=== PATIENT | female | born 2000 | race Caucasian/White ===

== ENCOUNTER 2023-01-01 19:45 | Emergency (ER) | payer OTHER, SELFPAY ==
[2023-01-01 20:01] VITALS: BP 146/84; PULSE 94; RESP 16; TEMP 36.9; O2SAT 100; BMI 21.9
--- NOTE | 2023-01-01 20:17 | ED_ITS ---
HPI - General Adult General Chief complaint: Abdominal Pain Stated complaint: ABD PAIN/VOMITING/WHID CLIN SAID GASTROENTERITIS Time Seen by Provider: 01/01/23 20:13 Source: patient Mode of arrival: Ambulatory History of Present Illness HPI narrative: 22-year-old woman with no significant medical history presents after 8 days of persistent vomiting. She was seen on December 26 at [facility] diagnosed with gastroenteritis given Zofran and is finding that Zofran is no longer effective. She is vomiting multiple times a day, still voiding complaining of diffuse abdominal pain that is worse with the vomiting but not so bad it seems to be causing the vomiting. She has not had any fevers. She is not complaining of dizziness, cough, palpitations, lower extremity edema, rashes, vaginal discharge or diarrhea. Related Data Previous Rx's Medication Instructions Recorded omeprazole 20 mg capsule,delayed 20 mg PO DAILY #30 caps 01/01/23 release ondansetron 4 mg disintegrating 4 mg PO Q8H PRN nausea and 01/01/23 tablet vomiting #14 tabs Allergies Allergy/AdvReac Type Severity Reaction Status Date / Time No Known Drug Allergies Allergy Verified 01/01/23 20:04 Review of Systems Review of Systems Narrative: Pertinent positive and negative findings as per HPI Patient History Social History Smoking Status: Current every day smoker Smoking Status: Current every day smoker alcohol intake frequency: a few times a week Substance Use Type: marijuana Exam Initial Vital Signs Initial Vital Signs: Vital Signs Temperature 98.4 F 01/01/23 20:01 Pulse Rate 94 H 01/01/23 20:01 Respiratory Rate 16 01/01/23 20:01 Blood Pressure 146/84 H 01/01/23 20:01 Pulse Oximetry 100 01/01/23 20:01 Oxygen Delivery Method Room Air 01/01/23 20:01 General: Healthy appearing, in no acute distress. Able to give a complete and coherent history. Well-nourished well-developed HEENT: Moist mucous membranes, normal sclera with reactive pupils, Neck: No JVD, supple Respiratory: Lungs are clear to auscultation, no wheezing no rales no rhonchi. Full and symmetrical air movement Cardiac: Regular rate and rhythm no murmurs no bruits Abdomen: Soft, mild diffuse periumbilical tenderness without rebound or guarding, good bowel tones, no flank pain Skin: Warm and dry, no rashes Neurologic: Grossly neurologically intact with no obvious asymmetries or abno rmalities Extremities: No trauma, well perfused Psych: Cooperative, appropriate insight and affect Course Orders Ordered: ED Orders 01/01/23 20:10 Complete Blood Count AUTO DIFF Stat Comprehensive Metabolic Panel Stat Lipase Stat 01/01/23 20:20 Urine Microscopic Stat 01/01/23 21:12 CT abdomen pelvis w con Stat Ondansetron HCl (Ondansetron 4 Mg Odt) 4 mg PO NOW PRN PRN Reason: Nausea And Vomiting Ondansetron HCl (Ondansetron 4 Mg/2 Ml Inj) 4 mg IV NOW PRN PRN Reason: Nausea And Vomiting Discontinued Medications Pantoprazole Sodium (Pantoprazole 40 Mg Vial) 40 mg IV NOW ONE Stop: 01/01/23 21:20 Last Admin: 01/01/23 21:36 Dose: 40 mg Documented By: KYREE Vital Signs Vital signs: Vital Signs - 8 hr 01/01/23 20:01 01/01/23 22:38 Temperature 98.4 F Pulse Rate 94 H 76 Respiratory Rate 16 16 Blood Pressure 146/84 H 124/67 Pulse Oximetry 100 98 Oxygen Delivery Method Room Air Room Air Medical Decision Making Lab Data 01/01/23 20:10 01/01/23 20:10 Labs: Lab Results 01/01/23 01/01/23 01/01/23 Range/Units 20:10 20:10 20:20 WBC 6.9 (4.5-11.0) X10^3/uL RBC 4.44 (4.0-5.2) X10^6/uL Hgb 13.9 (12.0-16.0) g/dL Hct 40.9 (36-46) % MCV 92.3 (80-100) fL MCH 31.4 (26-34) PG MCHC 34.0 (30-36) % RDW 12.3 (11.6-14.8) % Plt Count 221 (150-400) X10^3/uL Neut % (Auto) 53.4 (50-75) % Lymph % (Auto) 38.0 (25-40) % [place] % (Auto) 6.0 (3-14) % Eos % (Auto) 2.2 (2-4) % Baso % (Auto) 0.4 (0-2) % Neut # (Auto) 3700 (7133-9432) /uL Lymph # (Auto) 2600 (6105-2645) /uL [place] # (Auto) 400 (0-900) /uL Eos # (Auto) 200 (0-450) /uL Baso # (Auto) 0 (0-100) /uL Sodium 139 (137-145) mmol/L Potassium 3.8 (3.4-5.1) mmol/L Chloride 103 (98-107) mmol/L Carbon Dioxide 24 (22-32) mmol/L BUN 14 (7-17) mg/dL Creatinine 0.68 (0.52-1.04) mg/dL Estimated GFR > 60 (>60) mL/min BUN/Creatinine Ratio 20.6 (6-22) Glucose 93 (70-100) mg/dL Calcium 9.1 (8.4-10.2) mg/dL Total Bilirubin 0.7 (0.2-1.3) mg/dL AST 18 (14-36) IU/L ALT 20 (<35) IU/L Alkaline Phosphatase 58 (38-126) U/L Total Protein 8.5 H (6.3-8.2) g/dL Albumin 5.0 (3.5-5.0) g/dL Globulin 3.5 (1.7-4.1) g/dL Albumin/Globulin Ratio 1.4 (1.0-2.8) Lipase 111 (23-300) U/L Urine RBC 1-5/hpf (0-5/HPF) Urine WBC 1-5/hpf (0-5/HPF) Ur Squamous Epith Cells 5-10 /hpf H (0-5/HPF) Amorphous Sediment 2+ Urine Bacteria Many (>30) H (None) Ur Culture Indicated? Cult not indicated Point of Care Testing Test Results Negative Urine Dip Bedside Urine Glucose Negative Bedside Urine Bilirubin - Negative Bedside Urine Ketone - Negative Urine Specific [place] 1.015 Bedside Urine Occult Blood +/- Bedside Urine pH 7 Bedside Urine Protein - Negative Bedside Urine Urobilinogen - Negative Bedside Urine Nitrite - Negative Bedside Urine Leukocytes - Negative Esterase Point of care testing: Point of Care Testing Test Results Negative Urine Dip Bedside Urine Glucose Negative Bedside Urine Bilirubin - Negative Bedside Urine Ketone - Negative Urine Specific [place] 1.015 Bedside Urine Occult Blood +/- Bedside Urine pH 7 Bedside Urine Protein - Negative Bedside Urine Urobilinogen - Negative Bedside Urine Nitrite - Negative Bedside Urine Leukocytes - Negative Esterase MDM Narrative Medical decision making narrative: CC: A days of nausea and vomiting without significant weight loss. This is a new problem uncertain diagnosis and uncertain prognosis Complicating co-morbidities: None clearly identified Data collected from: patient, Differential considered: Viral syndrome, anxiety, gastritis, bowel obstruction/tumor mass Exam documented above, pertinent findings include: Fairly benign exam without evidence of dehydration. Mild abdominal tenderness without rebound or guarding Lab Test results independently reviewed as above. Pertinent findings: CBC is unremarkable with no anemia new leukocytosis Chemistries are reassuring Urine has multiple squamous cells and bacteria, this does not appear to be an infection Imaging studies independently reviewed: CT scan of the abdomen is done with shared decision-making. As she is had symptoms now for 8 days I gave her the option of proceeding with scan or continuing to wait. She opted to proceed with scanning. The CT scan is entirely benign with no obvious pathology to explain her symptoms. Treatments: Zofran, fluids, pantoprazole Discussion: Findings are re-evaluated with the patient. She has not had any persistent vomiting since being in the emergency department. Reviewed normal labs normal CT scan. Discussed proton pump inhibitor for a month to see if this has any effect. At this point I do not think that anxiety is directly related however I did ask her to pay attention to that to see if high anxiety days were associated with high nausea and vomiting days. She will schedule an appointment with her follow-up provider to review findings. There is no evidence of infection, acute kidney failure, electrolyte abnormalities, masses tumors, obvious gastric perforation or GI bleeding. Reassurance is given questions are answered and she is safe for discharge home Discharge Plan Departure Patient Disposition: Home Clinical Impression: Nausea & vomiting Qualifiers: Vomiting type: unspecified Qualified Code(s): R11.2 - Nausea with vomiting, unspecified Instructions: DI for Nausea -- Adult Activity Restrictions/Additional Instructions: Thank you for coming in today Your workup was actually quite reassuring. There is no evidence of kidney failure, significant dehydration, infection. Your CT scan was additionally reassuring with no findings to suggest acute pancreatitis, gallbladder disease, significant pathology or obstruction throughout the rest of your belly. I am going to suggest that you try omeprazole, a stomach acid medicine, for 4 weeks. I also want you to schedule an appointment with your primary care doctor. I am less convinced that your nausea is related to her anxiety however, please do pay attention to your days where you seem like your having more anxiety and see if you are having more nausea or vomiting also on those days If you find that you are getting worse, vomiting up any blood, having any black stools, worsening pain that can not be controlled home than please feel free to return to the emergency department Prescriptions: New omeprazole 20 mg capsule,delayed release(DR/EC) 20 mg PO DAILY Qty: 30 1RF ondansetron 4 mg tablet,disintegrating 4 mg PO Q8H PRN (Reason: nausea and vomiting) Qty: 14 0RF Stand Alone Forms: Patient Portal/API, Work Release Note
[2023-01-01 20:33] LABS: Add Manual Diff / Slide Review NO; Basophils Absolute Auto 0 /uL (0-100); Basophils Percent Auto 0.4 % (0-2); Eosinophils Absolute Auto 200 /uL (0-450); Eosinophils Percent Auto 2.2 % (2-4); Hematocrit 40.9 % (36-46); Hemoglobin 13.9 g/dL (12.0-16.0); Lymphocytes Absolute Auto 2600 /uL (1100-4500); Mean Corpuscular Hemoglobin 31.4 PG (26-34); Mean Corpuscular Volume 92.3 fL (80-100); Monocytes Absolute Auto 400 /uL (0-900); Neutrophils Absolute Auto 3700 /uL (1500-7000); Neutrophils Percent Auto 53.4 % (50-75); Platelet Count 221 X10^3/uL (150-400); Red Blood Cell Count 4.44 X10^6/uL (4.0-5.2); Red Cell Distribution Width 12.3 % (11.6-14.8); White Blood Cell Count 6.9 X10^3/uL (4.5-11.0)
[2023-01-01 20:39] LABS: Alanine Aminotransferase 20 IU/L (<35); Albumin Globulin Ratio 1.4 (1.0-2.8); Alkaline Phosphatase 58 U/L (38-126); Aspartate Aminotransferase 18 IU/L (14-36); BUN Creatinine Ratio 20.6 (6-22); Bilirubin Total 0.7 mg/dL (0.2-1.3); Blood Urea Nitrogen 14 mg/dL (7-17); Calcium 9.1 mg/dL (8.4-10.2); Carbon Dioxide 24 mmol/L (22-32); Chloride 103 mmol/L (98-107); Estimated Glomerular Filt Rate > 60 mL/min (>60); Globulin 3.5 g/dL (1.7-4.1); Glucose 93 mg/dL (70-100); HEMOLYSIS < 15 (0-50); Lipase 111 U/L (23-300); Potassium 3.8 mmol/L (3.4-5.1); Sodium 139 mmol/L (137-145); Total Protein 8.5 g/dL (6.3-8.2)
[2023-01-01 20:43] LABS: RBC Urine 1-5/HPF (0-5/HPF)
[2023-01-01 20:44] LABS: Amorphous Sediment Urine 2+; Bacteria Urine Many (>30); Culture Indicated Urine Cult Not Indicated; Squamous Epithelial Cell Urine 5-10 /HPF (0-5/HPF); WBC Urine 1-5/HPF (0-5/HPF)
--- NOTE | 2023-01-01 21:12 | DI.CT.S_ITS ---
PROCEDURE: CT ABDOMEN PELVIS W CON INDICATIONS: diffuse abd pain with persistent nausea/vomiting x 8 days TECHNIQUE: After the administration of IV contrast, axial sections were acquired from the lung bases to the pubic symphysis. Coronal and sagittal reformats were performed. For radiation dose reduction, the following was used: automated exposure control, adjustment of mA and/or kV according to patient size. COMPARISON: None. FINDINGS: Image quality: Excellent. Lung bases: There are small pulmonary nodules in the lung bases, measuring up to 0.3 cm in the right and left lower lobes on series 3, image 7.. Heart: Heart is normal in size. ABDOMEN: Liver: No mass lesion. Gallbladder: Within normal limits without calcified gallstones. Biliary ducts: No biliary ductal dilatation. Pancreas: Unremarkable. Spleen: Normal in size. Adrenal Glands: No adrenal nodules. Kidneys and Ureters: No hydronephrosis. Stomach and Bowel: Stomach, small bowel loops, and colon are normal in caliber and wall thickness. The appendix is normal. There is colonic diverticulosis without acute diverticulitis. Peritoneum: No abnormal intraperitoneal fluid. No free air. Ventral Wall: No hernia. Abdominal Nodes: No retroperitoneal or mesenteric adenopathy by size criteria. Vessels: Aorta and inferior vena cava are normal in size. PELVIS: Pelvic Organs: The uterus and ovaries appear within normal size limits for age. A small amount of endometrial fluid is present. Bladder: Unremarkable. Pelvic Nodes: No enlarged lymph nodes. Miscellaneous: No inguinal hernias are seen. Bones: Visualized osseous structures demonstrate no suspicious focal lesions. IMPRESSION: 1. No definite acute intra-abdominal abnormality. Dictated by: Brodie Quintero M.D. on 01/01/2023 at 22:30 Approved by: Brodie Quintero M.D. on 01/01/2023 at 22:33
[2023-01-01] MEDS: PANTOPRAZOLE 40 MG VIAL IV (21:36)
[2023-01-01 22:38] VITALS: BP 124/67; PULSE 76; RESP 16; O2SAT 98
== END 2023-01-01 23:42 | disposition home or self-care (01) ==
PROVIDERS: Emergency Provider Emergency Medicine
DX: R11.2 Nausea with vomiting, unspecified (principal); R10.2 Pelvic and perineal pain
CPT/HCPCS: 36415; 74177; 80053; 81003; 81015; 81025; 83690; 85025; 96374; 99284; C9113; Q9967

== ENCOUNTER 2023-01-12 18:43 | Emergency (ER) | payer OTHER, SELFPAY ==
[2023-01-12] VITALS (7 sets, daily range): BP systolic 116–128; BP diastolic 69–79; PULSE 74–103; RESP 14–18; TEMP 37.2; O2SAT 98–100; BMI 21.9
--- NOTE | 2023-01-12 19:00 | ED_ITS ---
HPI - Abdominal Pain General Chief Complaint: Abdominal Pain Stated Complaint: vomiting for 2 wks/here t-7/symptoms worsening Time Seen by Provider: 01/12/23 19:00 Source: patient Mode of arrival: Ambulatory History of Present Illness HPI narrative: Patient is a 22-year-old female who presents with vomiting ongoing for about 2 weeks. She was seen evaluated here on January 01. She would a full workup including CT. Diagnosed probable viral gastroenteritis with possible anxiety component. She reports she was given Zofran and omeprazole it still has not helped. She still vomiting unable to keep things down. She has occasional diarrhea she thought that the episode she had this morning was bloody. She was able to keep some mac and cheese down last night. She is still urinating. Today's weight is exactly the same way as it was 2 weeks ago. Related Data Previous Rx's Medication Instructions Recorded omeprazole 20 mg capsule,delayed 20 mg PO DAILY #30 caps 01/01/23 release ondansetron 4 mg disintegrating 4 mg PO Q8H PRN nausea and 01/01/23 tablet vomiting #14 tabs hydrocodone 5 mg-acetaminophen 325 1 tab PO Q6H PRN pain #10 tabs 01/12/23 mg tablet metoclopramide HCl 10 mg tablet 10 mg PO Q6H PRN nausea and 01/12/23 (Reglan) vomiting #20 tabs sucralfate 100 mg/mL oral 10 ml PO QID #1,000 mL 01/12/23 suspension (Carafate) Allergies Allergy/AdvReac Type Severity Reaction Status Date / Time No Known Drug Allergies Allergy Verified 01/01/23 20:04 Review of Systems Review of Systems ROS Unobtainable: All systems reviewed & are unremarkable except as noted in HPI and below Patient History Social History Smoking Status: Current every day smoker Smoking Status: Current every day smoker alcohol intake frequency: a few times a week Substance Use Type: marijuana Exam Initial Vital Signs Initial Vital Signs: Vital Signs Temperature 99.0 F 01/12/23 18:55 Pulse Rate 103 H 01/12/23 18:55 Respiratory Rate 18 01/12/23 18:55 Blood Pressure 124/79 01/12/23 18:55 Pulse Oximetry 99 01/12/23 18:55 Oxygen Delivery Method Room Air 01/12/23 18:55 GENERAL: Alert 22-year-old female and in [no acute] distress. HEENT: Head atraumatic,EOMI, pupils reactive, face symmetric, [moist] mucous membranes CARDIOVASCULAR: Regular rate and rhythm without murmurs, rubs or gallops. RESPIRATORY: Breath sounds equal bilaterally, no wheezes rales or rhonchi. ABDOMEN: Soft, epigastric tenderness no guarding no rebound no Siegel's sign EXTREMITIES: Normal range of motion, no clubbing or edema. Neurovascularly intact NEUROLOGICAL: Alert and oriented x4. SKIN: Warm, dry, no laceration, no petechiae, no rashes or lesions. Course Orders Ordered: ED Orders 01/12/23 19:05 Complete Blood Count AUTO DIFF Stat Comprehensive Metabolic Panel Stat Lactate (Lactic Acid) Stat Lipase Stat Discontinued Medications Hydrocodone Bitart/Acetaminophen (Hydrocodone/Acet 5/325 Prepack) 1 bottle MISC SEEINSTR ONE Stop: 01/12/23 20:58 Last Admin: 01/12/23 21:05 Dose: 1 bottle Documented By: PEEWEE Sodium Chloride (Normal Saline 0.9%) 1,000 mls @ 1,000 mls/hr IV BOLUS ONE Stop: 01/12/23 20:06 Last Infusion: 01/12/23 20:11 Dose: 0 mls/hr Documented By: Admin: 01/12/23 19:15 Dose: 1,000 mls/hr Documented By: JANICE Metoclopramide HCl (Metoclopramide 10 Mg/2 Ml Inj) 10 mg IV NOW ONE Stop: 01/12/23 20:47 Last Admin: 01/12/23 20:53 Dose: 10 mg Documented By: PEEWEE Ondansetron HCl (Ondansetron 4 Mg Odt) 4 mg PO NOW PRN PRN Reason: Nausea And Vomiting Ondansetron HCl (Ondansetron 4 Mg/2 Ml Inj) 4 mg IV NOW PRN PRN Reason: Nausea And Vomiting Pantoprazole Sodium (Pantoprazole 40 Mg Vial) 40 mg IV NOW ONE Stop: 01/12/23 19:12 Last Admin: 01/12/23 19:20 Dose: 40 mg Documented By: JANICE Vital Signs Vital signs: Vital Signs - 8 hr 01/12/23 18:55 01/12/23 19:06 05/21/23 19:30 Temperature 99.0 F Pulse Rate 103 H 90 74 Respiratory Rate 18 16 Blood Pressure 124/79 Pulse Oximetry 99 99 99 Oxygen Delivery Method Room Air Room Air 01/12/23 20:00 01/12/23 20:14 01/12/23 20:14 Temperature Pulse Rate 103 H 102 H Respiratory Rate Blood Pressure 128/77 Pulse Oximetry 100 100 Oxygen Delivery Method 01/12/23 20:30 01/12/23 21:00 01/12/23 21:00 Temperature Pulse Rate 83 89 Respiratory Rate 14 Blood Pressure 116/69 Pulse Oximetry 98 99 Oxygen Delivery Method MDM - Abdominal Pain Lab Data 01/12/23 19:05 01/12/23 19:05 Labs: Lab Results 01/12/23 01/12/23 01/12/23 Range/Units 19:05 19:05 19:05 WBC 5.3 (4.5-11.0) X10^3/uL RBC 4.41 (4.0-5.2) X10^6/uL Hgb 14.1 (12.0-16.0) g/dL Hct 40.3 (36-46) % MCV 91.4 (80-100) fL MCH 32.0 (26-34) PG MCHC 35.0 (30-36) % RDW 12.1 (11.6-14.8) % Plt Count 196 (150-400) X10^3/uL Neut % (Auto) 59.3 (50-75) % Lymph % (Auto) 31.4 (25-40) % [place] % (Auto) 6.1 (3-14) % Eos % (Auto) 2.4 (2-4) % Baso % (Auto) 0.8 (0-2) % Neut # (Auto) 3200 (2042-7811) /uL Lymph # (Auto) 1700 (5742-1122) /uL [place] # (Auto) 300 (0-900) /uL Eos # (Auto) 100 (0-450) /uL Baso # (Auto) 0 (0-100) /uL Sodium 139 (137-145) mmol/L Potassium 3.3 L (3.4-5.1) mmol/L Chloride 102 (98-107) mmol/L Carbon Dioxide 25 (22-32) mmol/L BUN 9 (7-17) mg/dL Creatinine 0.68 (0.52-1.04) mg/dL Estimated GFR > 60 (>60) mL/min BUN/Creatinine Ratio 13.2 (6-22) Glucose 101 H (70-100) mg/dL Lactate 1.0 (0.7-2.1) mmol/L Calcium 9.5 (8.4-10.2) mg/dL Total Bilirubin 0.8 (0.2-1.3) mg/dL AST 19 (14-36) IU/L ALT 21 (<35) IU/L Alkaline Phosphatase 55 (38-126) U/L Total Protein 8.0 (6.3-8.2) g/dL Albumin 4.7 (3.5-5.0) g/dL Globulin 3.3 (1.7-4.1) g/dL Albumin/Globulin Ratio 1.4 (1.0-2.8) Lipase 55 (23-300) U/L Point of care testing: Point of Care Testing Test Results Negative Urine Dip Bedside Urine Glucose Negative Bedside Urine Bilirubin - Negative Bedside Urine Ketone + 15 Urine Specific [place] 1.015 Bedside Urine Occult Blood - Negative Bedside Urine pH 6.0 Bedside Urine Protein - Negative Bedside Urine Urobilinogen 0.2 mg/dl Bedside Urine Nitrite - Negative Bedside Urine Leukocytes - Negative Esterase MDM Narrative Medical decision making narrative: Patient 22-year-old female who presents with epigastric pain and nausea ongoing for 2-3 weeks. No fever she has not had significant weight loss. Potassium today is slightly low at 3.3 but no significant leukocytosis or [place]. She is tolerating fluids. [place] is [place] really been unable to do so. At this time blood work his relatively reassuring exam is fairly benign I see no need for repeat imaging. I suspect a gastric or peptic ulcer possible gastritis. She is already taken omeprazole and Zofran is not working. Will add Reglan and Carafate. Discharge Plan Departure Patient Disposition: Home Clinical Impression: Gastric ulcer Instructions: DI for Gastric Ulcer Activity Restrictions/Additional Instructions: *You have been diagnosed with gastric ulcer *What to do: At this time increase food and fluid as tolerated. I do strongly recommend that you get an EGD and colonoscopy. [place] for [place]. *Continue to take medications as directed: Avoid NSAIDs such as ibuprofen/Aleve/Advil/Motrin etc Continue omeprazole as previously prescribed Reglan 10 mg every 6 hours if needed for nausea vomiting Carafate 1 g q.i.d. [place] 1 tablet every 6 hours if needed for severe pain *Follow up with your primary care provider in 2-3 days or call [phone] *Return to ER if you should have persistent vomiting increasing pain dizziness lightheadedness passing out [or] any new, worsening or concerning symptoms CONTROLLED SUBSTANCE DISCHARGE (Narcotoic/benzodiazepine/Flexeril/Phenergan) 1. You have been prescribed narcotic medications, it does have acetaminophen/Tylenol/paracetamol in it, DO NOT TAKE MORE THAN 4,00mg in 24 hours of Tylenol. TRAMADOL DOES NOT CONTAIN TYLENOL 2. Please understand that we cannot provide further refills of narcotics, benzodiazepines or controlled substances through the ED and her pain management will need to be through your provider. 3. While on these medications you cannot drive or operate heavy machinery. 4. You cannot sign legal documents or perform any duties such as this. 5. As long as you're taking opiate pain medications he should also be taking a stool softener such as Colace, Dulcolax, MiraLAX or prune juice, to help avoid constipation. Prescriptions: New hydrocodone-acetaminophen 5-325 mg tablet 1 tab PO Q6H PRN (Reason: pain) Qty: 10 0RF metoclopramide HCl [Reglan] 10 mg tablet 10 mg PO Q6H PRN (Reason: nausea and vomiting) Qty: 20 0RF sucralfate [Carafate] 100 mg/mL suspension 10 ml PO QID Qty: 1000 0RF Rx Instructions: swish in mouth and swallow; use after food/drink No Action omeprazole 20 mg capsule,delayed release(DR/EC) 20 mg PO DAILY Qty: 30 1RF ondansetron 4 mg tablet,disintegrating 4 mg PO Q8H PRN (Reason: nausea and vomiting) Qty: 14 0RF Stand Alone Forms: Patient Portal/API, Work Release Note
[2023-01-12 19:13] LABS: Add Manual Diff / Slide Review NO; Basophils Absolute Auto 0 /uL (0-100); Basophils Percent Auto 0.8 % (0-2); Eosinophils Absolute Auto 100 /uL (0-450); Eosinophils Percent Auto 2.4 % (2-4); Hematocrit 40.3 % (36-46); Hemoglobin 14.1 g/dL (12.0-16.0); Lymphocytes Absolute Auto 1700 /uL (1100-4500); Lymphocytes Percent Auto 31.4 % (25-40); Mean Corpuscular Volume 91.4 fL (80-100); Monocytes Absolute Auto 300 /uL (0-900); Monocytes Percent Auto 6.1 % (3-14); Neutrophils Absolute Auto 3200 /uL (1500-7000); Neutrophils Percent Auto 59.3 % (50-75); Platelet Count 196 X10^3/uL (150-400); Red Blood Cell Count 4.41 X10^6/uL (4.0-5.2); Red Cell Distribution Width 12.1 % (11.6-14.8); White Blood Cell Count 5.3 X10^3/uL (4.5-11.0)
[2023-01-12] MEDS: SODIUM CHLORIDE 0.9% 1,000 ML 1000 ML IV (19:15)
[2023-01-12] MEDS: PANTOPRAZOLE 40 MG VIAL IV (19:20)
[2023-01-12 19:23] LABS: Alanine Aminotransferase 21 IU/L (<35); Albumin 4.7 g/dL (3.5-5.0); Albumin Globulin Ratio 1.4 (1.0-2.8); Alkaline Phosphatase 55 U/L (38-126); Aspartate Aminotransferase 19 IU/L (14-36); BUN Creatinine Ratio 13.2 (6-22); Bilirubin Total 0.8 mg/dL (0.2-1.3); Blood Urea Nitrogen 9 mg/dL (7-17); Calcium 9.5 mg/dL (8.4-10.2); Carbon Dioxide 25 mmol/L (22-32); Chloride 102 mmol/L (98-107); Estimated Glomerular Filt Rate > 60 mL/min (>60); Globulin 3.3 g/dL (1.7-4.1); Glucose 101 mg/dL (70-100); HEMOLYSIS < 15 (0-50); Lipase 55 U/L (23-300); Potassium 3.3 mmol/L (3.4-5.1); Sodium 139 mmol/L (137-145)
[2023-01-12] MEDS: METOCLOPRAMIDE 10 MG/2 ML INJ IV (20:53)
[2023-01-12] MEDS: HYDROCODONE/ACET 5/325 PREPACK 1 BOTTLE MISC (21:05)
== END 2023-01-12 21:17 | disposition home or self-care (01) ==
PROVIDERS: Emergency Provider Emergency Medicine
DX: K25.9 Gastric ulcer, unspecified as acute or chronic, without hemorrhage or perforation (principal)
CPT/HCPCS: 36415; 80053; 81003; 81025; 83605; 83690; 85025; 96361; 96374; 96375; 99284; C9113; J2765

== ENCOUNTER 2023-05-28 13:29 | Emergency (ER) | payer OTHER, SELFPAY ==
[2023-05-28 13:41] VITALS: BP 136/88; PULSE 90; RESP 16; TEMP 37.1; O2SAT 99; BMI 21.0
--- NOTE | 2023-05-28 14:12 | PC.NURSE ---
Noted to have unequal pupils with R > L. Both reactive. Reports that she noticed the unequal size 3 hrs ago and was wearing a scopolamine patch 2 day ago.
--- NOTE | 2023-05-28 15:20 | PC.NURSE ---
On reassessment, pts pupils are equal size and reactive. [place] drop instilled in eye with AARON Puentes for Pharmacologic Anisocoria testing. Pt's R pupil with minimal to no constriction after testing indicating potential pharmacologic anisocoria from scopolamine use . Pt tolerated procedure well.
[2023-05-28 15:29] VITALS: BP 111/77; PULSE 92; RESP 16; O2SAT 99
[2023-05-28] MEDS: PILOCARPINE 2% OPHTH DROPS 15 ML 1 DROPS EYE-BOTH (15:29)
--- NOTE | 2023-05-28 15:35 | ED.EYEPROB ---
HPI - Eye Problem General Chief complaint: Eye Problems Stated complaint: Pupils do not match in size... Time Seen by Provider: 05/28/23 14:08 Source: patient Mode of arrival: Ambulatory History of Present Illness HPI Narrative: Patient is a 22-year-old female who presents with concern for her right pupil being larger than her left. She noticed her pupil this morning and it has been present for about 3 hours. She has a very mild headache, but this is not uncommon for her. She has a history of daily vomiting, for which she is being worked up by GI. She reports using a scopolamine patch for her vomiting, which she applied either Friday or Friday night and took off on Friday night. It has been approximately 36 hours since she removed the patch. She denies any double vision, vertigo, severe headache, loss of visual field or floaters in her vision. Related Data Previous Rx's Medication Instructions Recorded omeprazole 20 mg capsule,delayed 20 mg PO DAILY #30 caps 01/01/23 release ondansetron 4 mg disintegrating 4 mg PO Q8H PRN nausea and 01/01/23 tablet vomiting #14 tabs hydrocodone 5 mg-acetaminophen 325 1 tab PO Q6H PRN pain #10 tabs 01/12/23 mg tablet metoclopramide HCl 10 mg tablet 10 mg PO Q6H PRN nausea and 01/12/23 (Reglan) vomiting #20 tabs sucralfate 100 mg/mL oral 10 ml PO QID #1,000 mL 01/12/23 suspension (Carafate) Allergies Allergy/AdvReac Type Severity Reaction Status Date / Time No Known Drug Allergies Allergy Verified 01/01/23 20:04 Review of Systems Review of Systems ROS Unobtainable: All systems reviewed & are unremarkable except as noted in HPI and below Patient History Social History Smoking Status: Current every day smoker Smoking Status: Current every day smoker tobacco type: vaping alcohol intake frequency: a few times a month Substance Use Type: does not use Exam Narrative Exam Narrative: GENERAL: 22 year old patient appears stated age. Well-developed patient, in no distress. NEURO: Alert and oriented x3, mood/affect normal, normal speech, normal cognition. CN's (II-XII) grossly intact. No gross motor deficit, 5/5 strength throughout, no gross sensory loss. HEAD: Atraumatic. Normocephalic. EYES: Pupils equal round and reactive. Extraocular motions intact. No pain with EOM. No scleral icterus. No injection or drainage. No ptosis. ENT: Nose without bleeding or purulent drainage. Airway patent. NECK: Trachea midline. Non tender RESPIRATORY: No distress SKIN: No rash or erythema of visible areas Initial Vital Signs Initial Vital Signs: Vital Signs Temperature 98.7 F 05/28/23 13:41 Pulse Rate 90 05/28/23 13:41 Respiratory Rate 16 05/28/23 13:41 Blood Pressure 136/88 05/28/23 13:41 Pulse Oximetry 99 05/28/23 13:41 Oxygen Delivery Method Room Air 05/28/23 13:41 Course Orders Ordered: Discontinued Medications Pilocarpine HCl (Pilocarpine 1% Ophth Drops 15 Ml) 1 drops EYE-BOTH NOW ONE Stop: 05/28/23 14:19 Last Admin: 05/28/23 15:29 Dose: Not Given Documented By: CTS Pilocarpine HCl (Pilocarpine 2% Ophth Drops 15 Ml) 1 drops EYE-BOTH NOW ONE Stop: 05/28/23 14:46 Last Admin: 05/28/23 15:29 Dose: Not Given Documented By: CTS Pilocarpine HCl (Pilocarpine 2% Ophth Drops 15 Ml) 1 drops EYE-BOTH NOW ONE Stop: 05/28/23 15:16 Last Admin: 05/28/23 15:29 Dose: 1 drops Documented By: CTS Vital Signs Vital signs: Vital Signs - 8 hr 05/28/23 13:41 05/28/23 15:29 Temperature 98.7 F Pulse Rate 90 92 H Respiratory Rate 16 16 Blood Pressure 136/88 111/77 Pulse Oximetry 99 99 Oxygen Delivery Method Room Air Room Air MDM - Eye Problem MDM Narrative Medical decision making narrative: Multiple etiologies for patient's symptoms considered including, but not limited to: Physiologic anisocoria, Adie's tonic pupil, 3rd nerve palsy, pharmacologic anisocoria, intracranial abnormality. Patient without any red flags to indicate need for advanced imaging of her brain at this time. Per up-to-date algorithm, testing with pilocarpine eye drops demonstrates minimal constriction of the dilated pupil, indicating a pharmacologic anisocoria secondary to scopolamine patch use on the right side 36 hours ago. Discussed with the patient that this is a known side effect of the scopolamine patch, if it is giving her relief from her nausea, I would continue using it in coordination with her GI provider. Strict return precautions advised, including if she develops double vision, severe headache, vertigo. Patient's symptoms improved over duration of stay with above-stated therapies. Findings and discharge diagnosis discussed with patient/family followed by verbalization of understanding Return precautions discussed with patient/family whom verbalize understanding of diagnosis and plan Discharge Plan Departure Patient Disposition: Home Clinical Impression: Anisocoria Instructions: General Wellness (Alternative Therapy) Activity Restrictions/Additional Instructions: *You have been diagnosed with anisocoria. This is likely a medication side effect of the scopolamine patch that you had behind your right ear. This change in the size of your pupil may last up to 2 weeks, and this can be expected with the medication. You can continue using the medication as prescribed. If you develop any severe headache, double vision, weakness, or other symptoms, please return for reassessment. *What to do: *Please continue to take your regular medications as directed. [ ] New medication prescriptions sent to your pharmacy: [ ] [ ] New medication written as a paper prescription [x] No new medications given *Please follow up with your primary care provider in 2-3 days, call for an appointment. Let them know you were seen in the Emergency Department and that we ask that you be seen in follow up. We will electronically transmit a record of today's note if your PCP is in our system *If you do not have a primary care provider please contact the [facility] Resource line at [phone]. They will ask some questions about your medical history and help get you set up with a doctor in the community. *Return to Emergency Department if you should have any new, worsening or concerning symptoms, such as [fever greater than 101 F, shaking chills, worsening pain, persistent vomiting or other concerning symptoms]. Prescriptions: No Action omeprazole 20 mg capsule,delayed release(DR/EC) 20 mg PO DAILY Qty: 30 1RF ondansetron 4 mg tablet,disintegrating 4 mg PO Q8H PRN (Reason: nausea and vomiting) Qty: 14 0RF hydrocodone-acetaminophen 5-325 mg tablet 1 tab PO Q6H PRN (Reason: pain) Qty: 10 0RF metoclopramide HCl [Reglan] 10 mg tablet 10 mg PO Q6H PRN (Reason: nausea and vomiting) Qty: 20 0RF sucralfate [Carafate] 100 mg/mL suspension 10 ml PO QID Qty: 1000 0RF Rx Instructions: swish in mouth and swallow; use after food/drink Stand Alone Forms: Patient Portal/API
== END 2023-05-28 15:37 | disposition home or self-care (01) ==
PROVIDERS: Emergency Provider Physician Assistant
DX: H57.02 Anisocoria (principal)
CPT/HCPCS: 99282

== ENCOUNTER → 2023-06-18 08:14 | Outpatient (CLI) | payer OTHER, SELFPAY ==
--- NOTE | 2023-06-18 | DI.NM.S_ITS ---
PROCEDURE: NM GASTRIC EMPTYING STUDY RADIOPHARMACEUTICAL: 1 mCi Tc-99m sulfur colloid in an egg sandwich. INDICATIONS: NAUSEA TECHNIQUE: A Tc-99m labeled sulfur colloid labeled egg sandwich or oatmeal was served to the patient. Anterior and posterior planar images of the abdomen were obtained at 0 minutes and 30 minutes, then at hourly intervals up to 4 hours. The patient was upright and ambulating during the interval. COMPARISON: CT, CT ABDOMEN PELVIS W CON, 01/01/2023, 21:24. FINDINGS: The stomach has normal size, morphology, and position. There is normal emptying of solid gastric contents from the stomach by visual inspection. No gastroesophageal reflux is visualized. The percentage of tracer retained at specific time points are as follows: Time point Percent gastric retention Normal range 30 minutes 91% 70% or more 1 hour 70% 30% to 90% 2 hours 30% 60% or less 3 hours 12% 30% or less 4 hours 4% 10% or less IMPRESSION: Normal gastric emptying study. Dictated by: Geovanni Rivera M.D. on 06/18/2023 at 13:01 Approved by: Geovanni Rivera M.D. on 06/18/2023 at 13:08
== END ==
PROVIDERS: Referring Provider Physician Assistant; Visit Provider Physician Assistant
DX: R11.0 Nausea (principal)
CPT/HCPCS: 78264; A9541

== ENCOUNTER 2023-10-27 10:19 | Emergency (ER) | payer OTHER, SELFPAY ==
[2023-10-27] VITALS (8 sets, daily range): BP systolic 107–132; BP diastolic 77–94; PULSE 85–101; RESP 16–18; TEMP 36.9; O2SAT 97–100; BMI 22.1
--- NOTE | 2023-10-27 11:19 | ED_ITS ---
HPI - Nausea/Vomiting/Diarrhea General Chief complaint: Nausea/Vomiting/Diarrhea Stated complaint: vommiting t-7 Time Seen by Provider: 10/27/23 10:31 Source: patient Mode of arrival: Ambulatory History of Present Illness HPI Narrative: 23-year-old female presents with nausea or vomiting. The patient states she has a long history of nausea and vomiting with extensive workup by GI, with previous CT scans, endoscopy and colonoscopy, barium study, without clear explanation. She smokes marijuana but tried 6 months of not using it which did not work. She intermittently has nausea and vomiting and has been struggling with this now for the last week, with poor p.o. intake. She feels dehydrated. She denies fevers, chills, sore throat, rhinorrhea, myalgias, cough, chest or back or abdominal or flank pain, head or neck pain, trauma, visual or hearing changes, focal numbness or weakness, blood in vomit, red or black in stool, dysuria, hematuria, urinary frequency, concern for , or any other new concerns. She tried Zofran but this did not help enough. She is not sure what other antiemetics were best though she states she has tried multiple in the past. No other new concerns. She denies prior abdominal surgeries. Per chart review, she has history of GI evaluations for frequent vomiting, with scopolamine patch tried in the past. Related Data Previous Rx's Medication Instructions Recorded omeprazole 20 mg capsule,delayed 20 mg PO DAILY #30 caps 01/01/23 release ondansetron 4 mg disintegrating 4 mg PO Q8H PRN nausea and 01/01/23 tablet vomiting #14 tabs hydrocodone 5 mg-acetaminophen 325 1 tab PO Q6H PRN pain #10 tabs 01/12/23 mg tablet metoclopramide HCl 10 mg tablet 10 mg PO Q6H PRN nausea and 01/12/23 (Reglan) vomiting #20 tabs sucralfate 100 mg/mL oral 10 ml PO QID #1,000 mL 01/12/23 suspension (Carafate) metoclopramide HCl 10 mg tablet 10 mg PO Q6H PRN nausea and 10/27/23 (Reglan) vomiting #10 tabs Allergies Allergy/AdvReac Type Severity Reaction Status Date / Time Fish Containing Products Allergy Verified 10/27/23 10:43 Review of Systems Review of Systems Narrative: Constitutional: no fever, no chills Eyes: no visual disturbance, no discharge Ears, Nose, Mouth, Throat: no rhinorrhea, no sore throat Cardiovascular: no chest pain, no palpitations Respiratory: no cough, no shortness of breath Gastrointestinal: no abdominal pain, +vomiting, no diarrhea Genitourinary: no dysuria, no hematuria Musculoskeletal: no back pain, no neck stiffness Skin: no rash, no wound Neurological: no focal weakness, no focal numbness Patient History Social History Smoking Status: Current every day smoker Smoking Status: Current every day smoker tobacco type: vaping alcohol intake frequency: a few times a month Substance Use Type: does not use Exam Narrative Exam Narrative: Const: no acute distress, non toxic appearing; calm, conversant, pleasant Eyes: PERRLA, EOMI ENT: mucous membranes moist Neck: supple, non-tender Resp: no respiratory distress, clear to auscultation bilaterally Card: regular tachycardia currently to low 100s, no murmurs Abd: non tender diffusely on multiple assessments, negative Siegel's sign, no rigidity or rebound or guarding Back: no T or L spine tenderness, no CVA tenderness bilaterally Extrem: no deformities, no swelling bilateral lower extremities, 2+ distal pulses all extremities Neuro: ANOx4, carbon cleaner grossly intact, grossly intact sensation and strength all extremities Skin: no rash, warm and dry, less than 2nd capillary refill distally Initial Vital Signs Initial Vital Signs: Vital Signs Temperature 98.4 F 10/27/23 10:35 Pulse Rate 89 10/27/23 10:35 Respiratory Rate 16 10/27/23 10:35 Blood Pressure 128/94 H 10/27/23 10:35 Pulse Oximetry 99 10/27/23 10:35 Oxygen Delivery Method Room Air 10/27/23 10:35 Course Course Course Narrative: This presentation is most suggestive of chronic nausea and vomiting of unexplained etiology despite extensive outpatient workup, and a currently well- appearing, well-perfused patient who is comfortable with benign abdomen, though tachycardic in the setting of poor p.o. intake and ongoing nausea. In this setting, I am considered broad differential including but not limited to electrolyte derangements, HARRISON, intravascular volume depletion, gastritis, peptic ulcer disease, pancreatitis, , UTI, pyelonephritis, gastroparesis, cannabinoid hyperemesis syndrome, viral syndrome, among others. It seems unlikely we will identify a clear etiology for her chronic vomiting today however given extensive prior workup. I am still obtaining CBC, CMP, lipase, urinalysis, hCG, EKG, giving fluids and Reglan to assist with symptoms and will closely reassess. Patient is stable and understands and agrees with plan. Labs: HCG negative. CBC with mild leukopenia suitable for follow up with no clear evidence of infection here, no anemia or thrombocytopenia. Chemistry with creatinine within normal limits, no LFT elevation, no immediately concerning electrolyte derangements, overall reassuring. Lipase reassuring. UA with trace ketones, no clear evidence of infection. EKG NSR without acute ischemia or immediately concerning interval prolongation on my review. This remains most consistent with chronic nausea and vomiting, with symptoms improved here. Patient feeling improved and tolerating p.o.. Tachycardia fully resolved. She is comfortable, stating she is asymptomatic. She has benign abdomen. She appears stable for discharge. I am prescribing Reglan, which seemed to help her here. She understands importance of follow up and return precautions. Repeat exam and vital signs reassuring. Questions answered. Plan reviewed. Patient discharged in stable condition. Orders Ordered: ED Orders 10/27/23 11:44 EKG-12 Lead Stat 10/27/23 11:55 Beta HCG, Quant [HCG Quantitative /Beta subunit] Stat CBC Auto Diff [Complete Blood Count AUTO DIFF] Stat CMP [Comprehensive Metabolic Panel] Stat Lipase Stat 10/27/23 12:51 Urinalysis and Microscopic Stat Discontinued Medications Sodium Chloride (Normal Saline 0.9%) 1,000 mls @ 1,000 mls/hr IV BOLUS ONE Stop: 10/27/23 12:39 Last Infusion: 10/27/23 12:50 Dose: Infused Documented By: Admin: 10/27/23 12:02 Dose: 1,000 mls/hr Documented By: FREEDOM Metoclopramide HCl (Metoclopramide 10 Mg/2 Ml Inj) 10 mg IV NOW ONE Stop: 10/27/23 11:41 Last Admin: 10/27/23 12:02 Dose: 10 mg Documented By: FREEDOM Vital Signs Vital signs: Vital Signs - 8 hr 10/27/23 10:35 10/27/23 10:39 10/27/23 10:39 Temperature 98.4 F Pulse Rate 89 101 H Respiratory Rate 16 Blood Pressure 128/94 H 128/94 H Pulse Oximetry 99 98 Oxygen Delivery Method Room Air 10/27/23 11:00 10/27/23 11:00 10/27/23 11:30 Temperature Pulse Rate 96 H 97 H Respiratory Rate Blood Pressure 132/83 Pulse Oximetry 98 99 Oxygen Delivery Method Room Air Room Air 10/27/23 11:30 10/27/23 12:00 10/27/23 12:01 Temperature Pulse Rate 85 Respiratory Rate Blood Pressure 128/87 122/82 Pulse Oximetry 100 Oxygen Delivery Method 10/27/23 12:01 10/27/23 12:30 10/27/23 12:30 Temperature Pulse Rate 90 93 H Respiratory Rate Blood Pressure 116/77 Pulse Oximetry 100 97 Oxygen Delivery Method Room Air Room Air 10/27/23 13:27 Temperature Pulse Rate 93 H Respiratory Rate 18 Blood Pressure 107/82 Pulse Oximetry 98 Oxygen Delivery Method Room Air MDM - Nausea/Vomiting/Diarrhea Lab Data 10/27/23 11:55 10/27/23 11:55 Labs: Lab Results 10/27/23 10/27/23 Range/Units 11:55 12:51 WBC 3.9 L (4.5-11.0) X10^3/uL RBC 4.60 (4.0-5.2) X10^6/uL Hgb 14.3 (12.0-16.0) g/dL Hct 41.2 (36-46) % MCV 89.7 (80-100) fL MCH 31.1 (26-34) PG MCHC 34.7 (30-36) % RDW 12.5 (11.6-14.8) % Plt Count 197 (150-400) X10^3/uL Neut % (Auto) 42.6 L (50-75) % Lymph % (Auto) 42.4 H (25-40) % [place] % (Auto) 5.5 (3-14) % Eos % (Auto) 8.9 H (2-4) % Baso % (Auto) 0.6 (0-2) % Neut # (Auto) 1700 (1024-7197) /uL Lymph # (Auto) 1700 (1362-4982) /uL [place] # (Auto) 200 (0-900) /uL Eos # (Auto) 300 (0-450) /uL Baso # (Auto) 0 (0-100) /uL Sodium 141 (137-145) mmol/L Potassium 3.5 (3.4-5.1) mmol/L Chloride 108 H (98-107) mmol/L Carbon Dioxide 24 (22-32) mmol/L BUN 6 L (7-17) mg/dL Creatinine 0.62 (0.52-1.04) mg/dL Estimated GFR > 60 (>60) mL/min BUN/Creatinine Ratio 9.7 (6-22) Glucose 94 (70-100) mg/dL Calcium 9.5 (8.4-10.2) mg/dL Total Bilirubin 1.0 (0.2-1.3) mg/dL AST 21 (14-36) IU/L ALT 23 (<35) IU/L Alkaline Phosphatase 54 (38-126) U/L Total Protein 8.3 H (6.3-8.2) g/dL Albumin 4.8 (3.5-5.0) g/dL Globulin 3.5 (1.7-4.1) g/dL Albumin/Globulin Ratio 1.4 (1.0-2.8) Lipase 67 (23-300) U/L HCG, Quant < 2.4 mIU/mL Urine Color Yellow Urine Appearance Clear Urine pH 6.5 (4.5-8.0) Ur Specific [place] 1.010 (1.000-1.035) Urine Protein Negative (Negative) Urine Glucose (UA) Negative (Negative) g/dL Urine Ketones Trace H (NEGATIVE) Urine Occult Blood Negative (Negative) Urine Nitrate Negative (Negative) Urine Bilirubin Negative (NEGATIVE) Urine Urobilinogen 0.2 (0.2) E.U./dL Ur Leukocyte Esterase Negative (NEGATIVE) Urine RBC None seen (0-5/HPF) Urine WBC None seen (0-5/HPF) Ur Squamous Epith Cells None seen (0-5/HPF) Urine Bacteria None seen (None) Ur Culture Indicated? Cult not indicated Vol Urine Centrifuged 10ml (spun) Point of Care Testing Test Results Negative Urine Dip Bedside Urine Glucose Negative Bedside Urine Bilirubin - Negative Bedside Urine Ketone - Negative Urine Specific Ophel[place] 1.015 Bedside Urine Occult Blood - Negative Bedside Urine pH 7.5 Bedside Urine Protein - Negative Bedside Urine Urobilinogen - Negative Bedside Urine Nitrite - Negative Bedside Urine Leukocytes - Negative Esterase Discharge Plan Departure Patient Disposition: Home Clinical Impression: Acute vomiting Instructions: DI for Vomiting -- Adult Activity Restrictions/Additional Instructions: It was a pleasure taking care of you today. It is important to fully read and understand the below. Please ask us if you have any questions. Your testing here is overall reassuring. Your white count is mildly low. Please see your primary doctor within 3-5 days to be reassessed and discuss further care, bringing this sheet. No tests or assessments are perfect, and your condition could supervisor policy change clerks time. If your symptoms change or worsen, it is very important you immediately seek medical care. If you have any new or worsening pain, lightheadedness or passing out, shortness of breath, fever, persistent vomiting, confusion, numbness, weakness, or anything else that concerns you, please immediately seek medical care. If you have been prescribed any medications: please read the drug package inserts on how to properly use the medication and any potential side effects. If you had labs (blood tests) or imaging (CT scan or x-rays) done during your visit: please follow up on the results of these with your primary care doctor, as discussed. In addition, please know the results we received today may be preliminary. Our usual practice is to follow up on tests within a few days of a patient's discharge from the Emergency Department and notify you of any changes. These may lead to changes to your treatment plan. However, the best way to obtain and interpret these test results is through your Primary Care Provider. If you need to update your contact information, please stop by the front office medical assistant and alert the Registration personnel before you leave the Emergency Department. Thank you for the opportunity to participate in your healthcare. We are always here and happy to see you in the future. Prescriptions: New metoclopramide HCl [Reglan] 10 mg tablet 10 mg PO Q6H PRN (Reason: nausea and vomiting) Qty: 10 0RF No Action omeprazole 20 mg capsule,delayed release(DR/EC) 20 mg PO DAILY Qty: 30 1RF ondansetron 4 mg tablet,disintegrating 4 mg PO Q8H PRN (Reason: nausea and vomiting) Qty: 14 0RF hydrocodone-acetaminophen 5-325 mg tablet 1 tab PO Q6H PRN (Reason: pain) Qty: 10 0RF metoclopramide HCl [Reglan] 10 mg tablet 10 mg PO Q6H PRN (Reason: nausea and vomiting) Qty: 20 0RF sucralfate [Carafate] 100 mg/mL suspension 10 ml PO QID Qty: 1000 0RF Rx Instructions: swish in mouth and swallow; use after food/drink Stand Alone Forms: Patient Portal/API, Work Release Note
[2023-10-27] MEDS: METOCLOPRAMIDE 10 MG/2 ML INJ IV (12:02)
[2023-10-27] MEDS: SODIUM CHLORIDE 0.9% 1,000 ML 1000 ML IV (12:02)
[2023-10-27 12:03] LABS: Add Manual Diff / Slide Review NO; Basophils Absolute Auto 0 /uL (0-100); Basophils Percent Auto 0.6 % (0-2); Eosinophils Absolute Auto 300 /uL (0-450); Eosinophils Percent Auto 8.9 % (2-4); Hematocrit 41.2 % (36-46); Hemoglobin 14.3 g/dL (12.0-16.0); Lymphocytes Absolute Auto 1700 /uL (1100-4500); Lymphocytes Percent Auto 42.4 % (25-40); Mean Corpuscular HGB Conc 34.7 % (30-36); Mean Corpuscular Hemoglobin 31.1 PG (26-34); Mean Corpuscular Volume 89.7 fL (80-100); Monocytes Absolute Auto 200 /uL (0-900); Monocytes Percent Auto 5.5 % (3-14); Neutrophils Absolute Auto 1700 /uL (1500-7000); Neutrophils Percent Auto 42.6 % (50-75); Platelet Count 197 X10^3/uL (150-400); Red Cell Distribution Width 12.5 % (11.6-14.8); White Blood Cell Count 3.9 X10^3/uL (4.5-11.0)
[2023-10-27 12:15] LABS: Alanine Aminotransferase 23 IU/L (<35); Albumin 4.8 g/dL (3.5-5.0); Albumin Globulin Ratio 1.4 (1.0-2.8); Alkaline Phosphatase 54 U/L (38-126); Aspartate Aminotransferase 21 IU/L (14-36); BUN Creatinine Ratio 9.7 (6-22); Blood Urea Nitrogen 6 mg/dL (7-17); Calcium 9.5 mg/dL (8.4-10.2); Carbon Dioxide 24 mmol/L (22-32); Chloride 108 mmol/L (98-107); Estimated Glomerular Filt Rate > 60 mL/min (>60); Globulin 3.5 g/dL (1.7-4.1); Glucose 94 mg/dL (70-100); HEMOLYSIS < 15 (0-50); Lipase 67 U/L (23-300); Potassium 3.5 mmol/L (3.4-5.1); Sodium 141 mmol/L (137-145); Total Protein 8.3 g/dL (6.3-8.2)
[2023-10-27 12:31] LABS: HCG Quantitative /Beta subunit < 2.4 mIU/mL
[2023-10-27 13:04] LABS: Appearance Urine UA CLEAR; Bilirubin Urine UA NEGATIVE (NEGATIVE); Color Urine UA YELLOW; Glucose Urine UA NEGATIVE (Negative); Ketones Urine UA TRACE (NEGATIVE); Leukocyte Esterase Urine UA NEGATIVE (NEGATIVE); Nitrite Urine UA NEGATIVE (Negative); Occult Blood Urine UA NEGATIVE (Negative); Protein Urine UA NEGATIVE (Negative); Urobilinogen Urine UA 0.2 E.U./dL (0.2); pH Urine UA 6.5 (4.5-8.0)
[2023-10-27 13:09] LABS: Urine Volume 10mL (spun)
[2023-10-27 13:14] LABS: Bacteria Urine None Seen; Culture Indicated Urine Cult Not Indicated; RBC Urine None Seen (0-5/HPF); Squamous Epithelial Cell Urine None Seen (0-5/HPF); WBC Urine None Seen (0-5/HPF)
== END 2023-10-27 13:30 | disposition home or self-care (01) ==
PROVIDERS: Emergency Provider Emergency Medicine
DX: R11.2 Nausea with vomiting, unspecified (principal); R03.0 Elevated blood-pressure reading, without diagnosis of hypertension
CPT/HCPCS: 36415; 80053; 81001; 81003; 81025; 83690; 84702; 85025; 93005; 93010; 96374; 99284; J2765